=== PATIENT | male | born 1945 | race Caucasian/White ===

== ENCOUNTER → 2018-03-15 | Outpatient (CLI) | payer MEDICARE ==
[~2018-03-15] MED LIST: ASPI-496 PO; DOXA8TAB63 PO; FLEC100T PO; FLUT9.9S NAS; LEVO175T2 PO; LIOT5TAB3 PO; METO25TA35 PO; MULT-717 PO; OMEP20TA62 PO; SIMV40TA3 PO; TURM500C7 PO
[2018-03-15 09:15] LABS: MICROSCOPIC AUTO
== END | disposition home or self-care (01) ==
LOC: STAR 08:19
PROVIDERS: ATTEND Urology
DX: Z01.818 Encounter for other preprocedural examination (principal); N20.0 Calculus of kidney
CPT/HCPCS: 81001; 87086; 93005

== ENCOUNTER 2018-03-23 08:35 | Day surgery (SDC) | payer MEDICARE ==
[2018-03-15 09:31] VITALS: BP 123/75
[~2018-03-23] VITALS: Ht 177.8 cm; Wt 82.8 kg
[2018-03-23] MEDS ORDERED: LACTATED RINGERS 1,000 ML IV SCH (08:56)
[2018-03-23] MEDS ORDERED: LIDOCAINE-MPF 1%, 2ML INFIL ONE (09:00)
[2018-03-23] MEDS ORDERED: FENTANYL PF 250 MCG/5ML ONE (09:42)
[2018-03-23] MEDS ORDERED: MIDAZOLAM 1 MG/ML, 2ML ONE (10:57)
[2018-03-23] MEDS ORDERED: KETOROLAC 30 MG/1 ML ONE (11:03)
[2018-03-23] MEDS ORDERED: CIPROFLOXACIN 400MG/200ML PMX ONE (11:03)
[2018-03-23] MEDS ORDERED: PROPOFOL 10 MG/ML, 20ML ONE (12:56)
[2018-03-23] MEDS ORDERED: ONDANSETRON 2MG/ML, 2ML ONE (12:56)
[2018-03-23] MEDS ORDERED: CEFAZOLIN 1,000 MG ONE (12:56)
[2018-03-23] MEDS ORDERED: DEXAMETHASONE 4 MG/ML, 1ML ONE (12:56)
[2018-03-23] MEDS ORDERED: PROMETHAZINE 25 MG/ML, 1ML IV PRN (13:30)
[2018-03-23] MEDS ORDERED: HYDROcodone/APAP 7.5-325MG/15ML UDC PO PRN (13:30)
[2018-03-23] MEDS ORDERED: hydrALAzine 20 MG/ML, 1ML IV PRN (13:30)
[2018-03-23] MEDS ORDERED: ONDANSETRON ODT 8 MG PO PRN (13:30)
[2018-03-23] MEDS ORDERED: LABETALOL 5MG/ML, 20ML IV PRN (13:30)
[2018-03-23] MEDS ORDERED: ACETAMINOPHEN 325 MG TABLET PO PRN (13:30)
[2018-03-23] MEDS ORDERED: FENTANYL PF 100 MCG/2ML IV PRN (13:30)
[2018-03-23] MEDS ORDERED: MORPHINE SULFATE 4 MG/ML, 1ML IVPush PRN (13:30)
[2018-03-23] MEDS ORDERED: OXYcodone 5 MG/5 ML ORAL.SOL UDC PO PRN (13:30)
[2018-03-23] MEDS ORDERED: OMNIPAQUE 350 MG/ML, 50 ML BOTTLE ONE (15:17)
== END 2018-03-23 15:45 | disposition home or self-care (01) ==
LOC: OUT 08:35
PROVIDERS: ATTEND Urology
DX: N20.0 Calculus of kidney (principal); I48.91 Unspecified atrial fibrillation; I10 Essential (primary) hypertension; K21.9 Gastro-esophageal reflux disease without esophagitis; E03.9 Hypothyroidism, unspecified; Z87.440 Personal history of urinary (tract) infections; Z98.890 Other specified postprocedural states; Z79.82 Long term (current) use of aspirin
CPT/HCPCS: 52356; 74018; 76001; C1726; C1758; C1769; C2617; J0690; J0744; J1100; J1885; J2250; J2405; J2704; J3010; J3490; J7120; Q9967